=== PATIENT | male | born 1950 ===

== ENCOUNTER 2017-06-02 11:21 | Emergency (ER) | payer MEDICARE, MEDICAID ==
[2017-06-02 11:31] VITALS: BMI 24.1
[2017-06-02] MEDS ORDERED: Metoprolol Succinate 50 mg XL Tab PO STA (12:12)
[2017-06-02] MEDS ORDERED: Sodium Chloride 0.9% 1,000 ML IV SCH (12:15)
--- NOTE | 2017-06-02 12:34 | C.PDOC ---
History Of Present Illness 66 y/o male brought to ED from home by EMS with complaints of worsening pain and weakness to lower extremities for 6 months and dizziness today. Patient states he is unable to walk secondary to pain, and when he walks he feels off balance and is afraid of falling. He uses cane to walk. Patient states he recently saw Dr. Quinteros who said he needed Vitamin D. Patient states he last took HTN medication yesterday, none was taken today. Patient admits to numbness and denies recent injury, nausea, vomiting, chest pain or any other complaints at this time. Time Seen by Provider: 06/02/17 11:50 Chief Complaint (Nursing): Lower Extremity Problem/Injury History Per: Patient History/Exam Limitations: no limitations Onset/Duration Of Symptoms: Days Current Symptoms Are (Timing): Still Present Past Medical History Reviewed: Historical Data, Nursing Documentation, Vital Signs Vital Signs: Last Vital Signs Temp 98.1 F 06/02/17 14:58 Pulse 82 06/02/17 14:58 Resp 18 06/02/17 14:58 BP 156/86 H 06/02/17 14:58 Pulse Ox 99 06/02/17 15:03 - Medical History PMH: Anemia, Anxiety, CAD, COPD, CVA (2008), Emphysema, HTN, Hypercholesterolemia - [facility] Procedures ANGIOPLASTY OF OTHER NON-CORONARY VESSEL(S) (01/03/14) ATHERECTOMY OF OTHER NON-CORONARY VESSEL(S) (01/03/14) CL REDUC DISLOC-SHOULDER (10/26/14) CLOSURE SKIN & SUBCUTANEOUS NEC (05/29/14) ENDOSC POLYPECTOMY OF LG INTEST (06/29/14) ESOPHAGOGASTRODUODENOSCOPY [EGD] W/CLOSED BIOPSY (06/29/14) INSEJ [id number] PERIPHERAL NON-CORONARY VES STENT(S) (01/03/14) INSERTION OF ONE VASCULAR STENT (01/03/14) PACKED CELL TRANSFUSION (06/29/14) PROCEDURE ON SINGLE VESSEL (01/03/14) TETANUS TOXOID ADMINIST (05/29/14) Family History: States: No Known Family Hx - Social History Hx Tobacco Use: Yes Hx Alcohol Use: Yes Hx Substance Use: No - Immunization History Hx Tetanus Toxoid Vaccination: No Hx Influenza Vaccination: Yes Hx Pneumococcal Vaccination: Yes Review Of Systems Constitutional: Negative for: Fever, Chills Eyes: Negative for: Vision Change Cardiovascular: Negative for: Chest Pain Respiratory: Negative for: Shortness of Breath Gastrointestinal: Negative for: Nausea, Vomiting Musculoskeletal: Positive for: Leg Pain Skin: Negative for: Rash Neurological: Positive for: Dizziness Physical Exam - Physical Exam Appears: Non-toxic, No Acute Distress, Unkempt Skin: Warm, Dry, No Rash Head: Atraumatic, Normacephalic, No Tenderness, No Swelling Eye(s): right: Normal Inspection, left: Other (Exotropia) Oral Mucosa: Moist Teeth: Other (Poor dentition) Throat: Normal, No Erythema, No Exudate Neck: Supple Cardiovascular: Rhythm Regular, No Murmur, Other (Tachycardic) Respiratory: Normal Breath Sounds, No Rales, No Rhonchi, No Wheezing Gastrointestinal/Abdominal: Soft, No Tenderness Back: Normal Inspection, No Vertebral Tenderness Extremity: Bilateral: Atraumatic, Hips Non-Tender, No Pedal Edema, Normal Color And Temperature, Normal ROM, Other (strength symmetric in lower extremities and upper) Pulses: Left Dorsalis Pedis: Normal, Right Dorsalis Pedis: Normal Neurological/Psych: Oriented x3, Normal Speech, Normal Cranial Nerves, Normal Motor, Normal Sensation Gait: Unable To Assess ED Course And Treatment - Laboratory Results Result Diagrams: 06/02/17 12:39 06/02/17 12:39 Lab Interpretation: No Acute Changes ECG: Interpreted By Me, Viewed By Ut ECG Rhythm: Sinus Rhythm, R BBB ECG Interpretation: No Acute Changes, No Changes From Prior (01/17/16) Rate From EC (bpm) O2 Sat by Pulse Oximetry: 99 (RA) Pulse Ox Interpretation: Normal - Other Rad CXR X-Ray: Viewed By Me, Read By Radiologist Interpretation: PROCEDURE: CHEST RADIOGRAPH, 1 VIEW. HISTORY: SOB. COMPARISON: 01/16/2016. FINDINGS: LUNGS: Clear. PLEURA: No pneumothorax or pleural fluid seen. CARDIOVASCULAR: No radiographic findings to suggest acute or significant cardiovascular disease. OSSEOUS STRUCTURES: No significant abnormalities. VISUALIZED UPPER ABDOMEN: Normal. OTHER FINDINGS: None. IMPRESSION: No active disease. No acute/significant interval changes. - CT Scan/US Head w/o contrast Other Rad Studies (CT/US): Read By Radiologist, Radiology Report Reviewed CT/US Interpretation: PROCEDURE: CT HEAD WITHOUT CONTRAST. HISTORY: dizziness. COMPARISON: 01/16/2016. TECHNIQUE: Axial computed tomography images were obtained through the head/brain without intravenous contrast. Radiation dose: Total exam DLP = 833.75 mGy-cm. This CT exam was performed using one or more of the following dose reduction techniques: Automated exposure control, adjustment of the mA and/or kV according to patient size, and/ or use of iterative reconstruction technique. FINDINGS: HEMORRHAGE: No intracranial hemorrhage. BRAIN: No mass effect or edema. Mild diffuse age- appropriate cerebral atrophy. Moderate to severe patchy and confluent periventricular and deep white matter lucency consistent with microvascular ischemic change. No evidence of acute infarct. VENTRICLES: Unremarkable. No hydrocephalus. CALVARIUM: Unremarkable. PARANASAL SINUSES: Unremarkable as visualized. No significant inflammatory changes. MASTOID AIR CELLS: Unremarkable as visualized. No inflammatory changes. OTHER FINDINGS: None. IMPRESSION: No intracranial mass, hemorrhage or evidence of acute infarct. Moderate to severe chronic white matter ischemic change. Medical Decision Making Medical Decision Making: Impression: Dizziness, HTN, Gait problems Plan: ECG, Head CT, Blood work, UA ordered. Metropolol administered Progress: All diagnostics reviewed with no acute changes from prior visits. No ICH or evidence of acute infarct on CT Patient reevaluated, BP has improved after meds. Patient asking for food and was given sandwich to eat. He reports feeling better, but does not feel comfortable leaving ED. I explained to patient there is no medical indication for admission at this time. Patient asking for walker. Call Physical Therapist to evaluate patient and instruct patient on use of walker. Patient able to ambulate better and feels safe and better leaving. He is stable for discharge. Disposition Counseled Patient/Family Regarding: Diagnosis, Need For Followup - Disposition Referrals: [facility] [Outside] [facility] [Outside] Disposition: HOME/ ROUTINE Disposition Time: 15:02 Condition: STABLE Additional Instructions: Vaya a christy mdico o la clnica en 2-5 antonio sin falta, para mas evaluacin. [place] [facility] chhaya indicado. Volver a la nithya de emergencia en cualquier momento si los sntomas persisten o empeoran. 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 - Scribe Statement The provider has reviewed the documentation as recorded by the Saniaibfelisa Pinto All medical record entries made by the Nolan were at my direction and personally dictated by me. I have reviewed the chart and agree that the record accurately reflects my personal performance of the history, physical exam, medical decision making, and the department course for this patient. I have also personally directed, reviewed, and agree with the discharge instructions and disposition.
[2017-06-02 12:46] LABS: BASO # 0.1 K/uL (0.0-0.2); EOS # 0.1 K/uL (0.0-0.7); EOS % 0.8 % (0.0-4.0); HEMOGLOBIN 16.3 g/dL (12.0-18.0); LYMPH % 13.9 % (20.0-40.0); MEAN CELL VOLUME 94.8 fL (80.0-94.0); MEAN CORPUSCULAR HEMOGLOBIN 32.6 pg (27.0-31.0); MEAN CORPUSCULAR HGB CONC 34.4 g/dL (33.0-37.0); MEAN PLATELET VOLUME 7.6 fL (7.2-11.7); MONO % 14.2 % (0.0-10.0); NEUT % 70.1 % (50.0-75.0); RBC 4.99 Mil/uL (4.40-5.90); RED CELL DISTRIBUTION WIDTH 15.4 % (11.5-14.5); WHITE BLOOD COUNT 7.1 K/uL (4.8-10.8)
[2017-06-02 12:57] LABS: ALB/GLOB RATIO 1.3 (1.0-2.1); ALBUMIN 4.4 g/dL (3.5-5.0); ALT/SGPT 23 U/L (21-72); AST/SGOT 24 U/L (17-59); BLOOD UREA NITROGEN 12 mg/dL (9-20); CALCIUM 9.4 mg/dl (8.6-10.4); GFR AFRICAN-AMERICAN > 60; GFR NON-AFRICAN AMERICAN > 60
--- NOTE | 2017-06-02 13:02 | CT ---
PROCEDURE: CT HEAD WITHOUT CONTRAST. HISTORY: dizziness COMPARISON: 01/16/2016 TECHNIQUE: Axial computed tomography images were obtained through the head/brain without intravenous contrast. Radiation dose: Total exam DLP = 833.75 mGy-cm. This CT exam was performed using one or more of the following dose reduction techniques: Automated exposure control, adjustment of the mA and/or kV according to patient size, and/or use of iterative reconstruction technique. FINDINGS: HEMORRHAGE: No intracranial hemorrhage. BRAIN: No mass effect or edema. Mild diffuse age-appropriate cerebral atrophy. Moderate to severe patchy and confluent periventricular and deep white matter lucency consistent with microvascular ischemic change. No evidence of acute infarct. VENTRICLES: Unremarkable. No hydrocephalus. CALVARIUM: Unremarkable. PARANASAL SINUSES: Unremarkable as visualized. No significant inflammatory changes. MASTOID AIR CELLS: Unremarkable as visualized. No inflammatory changes. OTHER FINDINGS: None. IMPRESSION: No intracranial mass, hemorrhage or evidence of acute infarct. Moderate to severe chronic white matter ischemic change.
[2017-06-02 13:03] LABS: INR 0.9; PROTHROMBIN TIME 10.3 SECONDS (9.7-12.2)
[2017-06-02 13:05] LABS: URINE BILIRUBIN NEGATIVE (NEGATIVE); URINE BLOOD NEGATIVE (NEGATIVE); URINE CLARITY Clear (Clear); URINE COLOR Yellow (YELLOW); URINE GLUCOSE (UA) NORMAL (Normal); URINE LEUKOCYTE ESTERASE NEG Leu/uL (Negative); URINE NITRATE NEGATIVE (NEGATIVE); URINE PROTEIN NEGATIVE (NEGATIVE)
[2017-06-02 13:06] LABS: B-TYPE NATRIURETIC PEPTIDE 118 pg/mL (0-900); CK-MB 1.55 ng/mL (0.0-3.38)
[2017-06-02] MEDS ORDERED: Sodium Chloride 0.9% 1,000 ML ONE (13:06)
--- NOTE | 2017-06-02 13:39 | RAD ---
PROCEDURE: CHEST RADIOGRAPH, 1 VIEW HISTORY: SOB COMPARISON: 01/16/2016 FINDINGS: LUNGS: Clear. PLEURA: No pneumothorax or pleural fluid seen. CARDIOVASCULAR: No radiographic findings to suggest acute or significant cardiovascular disease. OSSEOUS STRUCTURES: No significant abnormalities. VISUALIZED UPPER ABDOMEN: Normal. OTHER FINDINGS: None. IMPRESSION: No active disease. No acute/significant interval changes.
[2017-06-02 14:59] VITALS: BP 156/86; PULSE 82; RESP 18; TEMP 98.1
[2017-06-02 15:04] VITALS: O2SAT 99
== END 2017-06-02 16:15 | disposition home or self-care (01) ==
LOC: C.ER 11:21
DX: R42 Dizziness and giddiness (principal); E78.00 Pure hypercholesterolemia, unspecified; I10 Essential (primary) hypertension; I25.10 Atherosclerotic heart disease of native coronary artery without angina pectoris; J44.9 Chronic obstructive pulmonary disease, unspecified; Z86.73 Personal history of transient ischemic attack (TIA), and cerebral infarction without residual deficits; Z87.891 Personal history of nicotine dependence
CPT/HCPCS: 70450; 71045; 80053; 81001; 82550; 82553; 83880; 85025; 85610; 85730; 96360; 96361; 97116; 97161; 99284; G0480; G8978; G8979; G8980; J7040

== ENCOUNTER 2018-02-18 13:17 | Inpatient (IN) | payer MEDICARE, MEDICAID ==
[2018-02-18 13:17] VITALS: BMI 24.1
[2018-02-18 13:54] LABS: BASO # 0.1 K/uL (0.0-0.2); BASO % 1.1 % (0.0-2.0); EOS # 0.1 K/uL (0.0-0.7); EOS % 0.9 % (0.0-4.0); HEMOGLOBIN 15.7 g/dL (12.0-18.0); LYMPH # 0.8 K/uL (1.0-4.3); LYMPH % 8.4 % (20.0-40.0); MEAN CELL VOLUME 94.7 fL (80.0-94.0); MEAN CORPUSCULAR HEMOGLOBIN 32.3 pg (27.0-31.0); MEAN CORPUSCULAR HGB CONC 34.1 g/dL (33.0-37.0); MEAN PLATELET VOLUME 8.6 fL (7.2-11.7); MONO # 0.8 K/uL (0.0-0.8); MONO % 8.7 % (0.0-10.0); NEUT # 7.6 K/uL (1.8-7.0); NEUT % 80.9 % (50.0-75.0); PLATELET COUNT 302 K/uL (130-400); RBC 4.85 Mil/uL (4.40-5.90); RED CELL DISTRIBUTION WIDTH 13.8 % (11.5-14.5); WHITE BLOOD COUNT 9.4 K/uL (4.8-10.8)
[2018-02-18 14:07] LABS: ALB/GLOB RATIO 1.6 (1.0-2.1); ALBUMIN 4.2 g/dL (3.5-5.0); ALT/SGPT 23 U/L (21-72); AST/SGOT 21 U/L (17-59); BLOOD UREA NITROGEN 7 mg/dL (9-20); CALCIUM 9.3 mg/dl (8.6-10.4); GFR NON-AFRICAN AMERICAN 55
[2018-02-18 14:19] LABS: B-TYPE NATRIURETIC PEPTIDE 740 pg/mL (0-900)
[2018-02-18 14:35] LABS: BANDS 3 % (0-2); LYMPHOCYTE 7 % (20-40); MONOCYTE 8 % (0-10); NEUTROPHIL 82 % (50-75); PLATELET ESTIMATE NORMAL (NORMAL); TOTAL CELLS COUNTED 100
--- NOTE | 2018-02-18 14:36 | CT ---
Date of service: 02/18/2018 PROCEDURE: CT HEAD WITHOUT CONTRAST. HISTORY: weakness COMPARISON: Noncontrast head CT performed 06/02/17 TECHNIQUE: Axial computed tomography images were obtained through the head/brain without intravenous contrast. Radiation dose: Total exam DLP = 1037.14 mGy-cm. This CT exam was performed using one or more of the following dose reduction techniques: Automated exposure control, adjustment of the mA and/or kV according to patient size, and/or use of iterative reconstruction technique. FINDINGS: HEMORRHAGE: No intracranial hemorrhage. BRAIN: Diffuse atrophy with prominence of the ventricles and sulci noted. No mass effect or edema. Dense intracranial atherosclerosis. Moderate to severe scattered periventricular and subcortical white matter hypodensities, which are nonspecific, but often seen with chronic microvascular ischemic disease. VENTRICLES: No hydrocephalus. CALVARIUM: Unremarkable. PARANASAL SINUSES: Unremarkable as visualized. No significant inflammatory changes. MASTOID AIR CELLS: Unremarkable as visualized. No inflammatory changes. OTHER FINDINGS: None. IMPRESSION: Moderate to severe nonspecific white matter changes. Please note that MRI with diffusion imaging is more sensitive in the detection of acute ischemic event.
--- NOTE | 2018-02-18 14:43 | RAD ---
HISTORY: SOB COMPARISON: Chest x-ray performed 06/02/17 TECHNIQUE: Chest, one view. FINDINGS: LUNGS: Mild bibasilar atelectasis. Please note that chest x-ray has limited sensitivity for the detection of pulmonary masses. PLEURA: No significant pleural effusion identified. No definite pneumothorax . CARDIOVASCULAR: Heart size appears top normal. Atherosclerotic calcification present. OSSEOUS STRUCTURES: Degenerative changes. VISUALIZED UPPER ABDOMEN: Unremarkable. OTHER FINDINGS: None. IMPRESSION: Mild bibasilar atelectasis.
[2018-02-18 15:23] LABS: URINE BILIRUBIN NEGATIVE (NEGATIVE); URINE BLOOD 1+ (NEGATIVE); URINE CLARITY Clear (Clear); URINE COLOR Yellow (YELLOW); URINE GLUCOSE (UA) NORMAL (Normal); URINE LEUKOCYTE ESTERASE NEG Leu/uL (Negative); URINE PROTEIN NEGATIVE (NEGATIVE); URINE UROBILINOGEN NORMAL mg/dL (0.2-1.0)
[2018-02-18 15:46] LABS: BARBITURATES, UR NEGATIVE (NEGATIVE); BENZODIAZEPINES, UR NEGATIVE (NEGATIVE); OPIATES, UR NEGATIVE (NEGATIVE); PHENCYCLIDINE, UR NEGATIVE (NEGATIVE)
--- NOTE | 2018-02-18 15:58 | C.PDOC ---
History Of Present Illness 67 y/o male brought to ER by EMS for evaluation of weakness. As per EMS, patient was found to be weak by bystanders as he was unable to cross the street. Patient is complaining of generalized weakness and dizziness. Patient reports that he is being treated by for Vitamin B12 deficiency. Denies having CP, SOB, fever, chills, nausea, and vomiting. Time Seen by Provider: 02/18/18 13:29 Chief Complaint (Nursing): Weakness/Neurological Deficit History Per: Patient, EMS History/Exam Limitations: no limitations Onset/Duration Of Symptoms: Hrs Current Symptoms Are (Timing): Still Present Severity: Moderate Past Medical History Reviewed: Historical Data, Nursing Documentation, Vital Signs Vital Signs: Last Vital Signs Temp 98.5 F 02/18/18 13:29 Pulse 99 H 02/18/18 13:29 Resp 20 02/18/18 13:29 BP 129/85 02/18/18 13:29 Pulse Ox 95 02/18/18 13:29 - Medical History PMH: Anemia, Anxiety, CAD, COPD, CVA (2008), Emphysema, HTN, Hypercholesterolemia Denies: Chronic Kidney Disease Other Surgeries: Hx of surgeries - [facility] Procedures ANGIOPLASTY OF OTHER NON-CORONARY VESSEL(S) (01/03/14) ATHERECTOMY OF OTHER NON-CORONARY VESSEL(S) (01/03/14) CL REDUC DISLOC-SHOULDER (10/26/14) CLOSURE SKIN & SUBCUTANEOUS NEC (05/29/14) ENDOSC POLYPECTOMY OF LG INTEST (06/29/14) ESOPHAGOGASTRODUODENOSCOPY [EGD] W/CLOSED BIOPSY (06/29/14) INSEJ [id number] PERIPHERAL NON-CORONARY VES STENT(S) (01/03/14) INSERTION OF ONE VASCULAR STENT (01/03/14) PACKED CELL TRANSFUSION (06/29/14) PROCEDURE ON SINGLE VESSEL (01/03/14) TETANUS TOXOID ADMINIST (05/29/14) Family History: States: No Known Family Hx - Social History Hx Tobacco Use: Yes Hx Alcohol Use: Yes Hx Substance Use: No - Immunization History Hx Tetanus Toxoid Vaccination: No Hx Influenza Vaccination: Yes Hx Pneumococcal Vaccination: Yes Review Of Systems Except As Marked, All Systems Reviewed And Found Negative. Constitutional: Positive for: Weakness. Negative for: Fever, Chills Cardiovascular: Negative for: Chest Pain Respiratory: Negative for: Shortness of Breath Gastrointestinal: Negative for: Nausea, Vomiting Physical Exam - Physical Exam Appears: Non-toxic, No Acute Distress Skin: Normal Color, Warm, Dry Head: Atraumatic, Normacephalic Eye(s): bilateral: Normal Inspection Nose: Normal Oral Mucosa: Moist Neck: Supple Chest: Symmetrical Cardiovascular: Rhythm Regular Respiratory: Normal Breath Sounds, No Rales, No Rhonchi, No Wheezing Gastrointestinal/Abdominal: Normal Exam, Soft, No Tenderness, No Guarding, No Rebound Neurological/Psych: Oriented x3, Normal Speech, Normal Motor, Normal Sensation Gait: Steady ED Course And Treatment - Laboratory Results Result Diagrams: 02/18/18 13:49 02/18/18 13:49 ECG: Interpreted By Me, Viewed By Me ECG Rhythm: Sinus Rhythm Interpretation Of ECG: NSR with normal intervals, normal axises, and non- specific T wave changes Rate From EC O2 Sat by Pulse Oximetry: 95 (RA) Pulse Ox Interpretation: Normal - Other Rad CXR X-Ray: Viewed By Me, Read By Radiologist Interpretation: HISTORY: SOB. COMPARISON: Chest x-ray performed 06/02/17. TECHNIQUE: Chest, one view. FINDINGS: LUNGS: Mild bibasilar atelectasis. Please note that chest x-ray has limited sensitivity for the detection of pulmonary masses. PLEURA: No significant pleural effusion identified. No definite pneumothorax . CARDIOVASCULAR: Heart size appears top normal. Atherosclerotic calcification present. OSSEOUS STRUCTURES: Degenerative changes. VISUALIZED UPPER ABDOMEN: Unremarkable. OTHER FINDINGS: None. IMPRESSION: Mild bibasilar atelectasis. - CT Scan/US CT-Head Other Rad Studies (CT/US): Read By Radiologist, Radiology Report Reviewed CT/US Interpretation: Date of service: 02/18/2018. PROCEDURE: CT HEAD WITHOUT CONTRAST. HISTORY: weakness. COMPARISON: Noncontrast head CT performed 06/02/17. TECHNIQUE: Axial computed tomography images were obtained through the head/brain without intravenous contrast. Radiation dose: Total exam DLP = 1037.14 mGy-cm. This CT exam was performed using one or more of the following dose reduction techniques: Automated exposure control, adjustment of the mA and/or kV according to patient size, and/or use of iterative reconstruction technique. FINDINGS: HEMORRHAGE: No intracranial hemorrhage. BRAIN: Diffuse atrophy with prominence of the ventricles and sulci noted. No mass effect or edema. Dense intracranial atherosclerosis. Moderate to severe scattered periventricular and subcortical white matter hypodensities, which are nonspecific, but often seen with chronic microvascular ischemic disease. VENTRICLES: No hydrocephalus. CALVARIUM: Unremarkable. PARANASAL SINUSES: Unremarkable as visualized. No significant inflammatory changes. MASTOID AIR CELLS: Unremarkable as visualized. No inflammatory changes. OTHER FINDINGS: None. IMPRESSION: Moderate to severe nonspecific white matter changes. Please note that MRI with diffusion imaging is more sensitive in the detection of acute ischemic event. Medical Decision Making Medical Decision Making: Assessment: Dizziness Plan: --Labs --ECG --UA --CXR --CT-Head Updates: Case discussed with Dr.N Corral, hospitalist. Patient will be admitted to Med Surg under the service of Dr.N Corral for weakness. Disposition Discussed With Dr.: Eris Corral Doctor Will See Patient In The: Hospital Counseled Patient/Family Regarding: Studies Performed, Diagnosis - Disposition Disposition: HOSPITALIZED Disposition Time: 16:30 Condition: FAIR - Clinical Impression Clinical Impression: Muscle weakness, Weakness - Scribe Statement The provider has reviewed the documentation as recorded by the Scribe Alverto Rodriguez Provider Attestation: All medical record entries made by the Scribe were at my direction and personally dictated by me. I have reviewed the chart and agree that the record accurately reflects my personal performance of the history, physical exam, medical decision making, and the department course for this patient. I have also personally directed, reviewed, and agree with the discharge instructions and disposition.
--- NOTE | 2018-02-18 16:48 | CP.PCM.HP ---
History of Present Illness - History of Present Illness History of Present Illness: PGY-1 Medicine H&P for Dr. Gilmore Patient s a 67 year old male with PMHx of HTN, anemia, emphysema, CAD, PVD, and CVA (2008) presenting with dizziness and generalized weakness. He was brought in by ambulance due to feeling dizzy and weak while crossing the street today. He states that he was unable to make it to the other side of the street and that is when someone called an ambulance. He describes the dizziness as if his head is spinning. He denies any visual or hearing loss. He also complains of feeling unsteady and weak when he walks and uses a cane to walk. He states that he has had this problem for a long time and saw a neurologist who said that he is deficient in vitamin B12. Patient denies taking Vitamin B12 supplements. Moreover, he reports to residual left eye visual abnormalities due to prior stroke in 2008. Patient denies fevers, chills, nausea, vomiting, tinnitus, difficulties in swallowing or speaking, headaches, chest pain, SOB, palpitations, abdominal pain, leg swelling, and paresthesias. PMHx: HTN, anemia (history of blood transfusions), emphysema, CAD, PVD, CVA (2008) PSHx: femoral artery stent (2013) Family Hx: father- of [place] at age 58, mother- , unknown cause, brother- alive and healthy. Social Hx: smokes half PPD x 50 years. ETOH use 2-3 beers/week (pt has had [facility] ER visits for ETOH intoxication). Denies illicit drug use. Lives with 2 friends. Medications: Cozaar 50mg daily, Metoprolol 100mg daily, Aspirin 81mg daily. PMD: Dr. Sesar Floyd Present on Admission - Present on Admission Any Indicators Present on Admission: No History of DVT/PE: No History of Uncontrolled Diabetes: No Urinary Catheter: No Decubitus Ulcer Present: No Review of Systems - Constitutional Constitutional: Fatigue. absent: Fever, Headache - EENT Eyes: absent: Blurred Vision, Change in Vision, Loss of Vision Ears: Dizziness. absent: Decreased Hearing, Ear Discharge, Ear Pain, Tinnitus Nose/Mouth/Throat: absent: Nasal Congestion, Nasal Discharge - Cardiovascular Cardiovascular: absent: Chest Pain, Diaphoresis, Palpitations - Respiratory Respiratory: absent: Cough, Dyspnea, Hemoptysis, Wheezing - Gastrointestinal Gastrointestinal: absent: Abdominal Pain, Change in Bowel Habits, Diarrhea, Nausea, Vomiting - Genitourinary Genitourinary: absent: Hematuria, Urinary Incontinence - Musculoskeletal Musculoskeletal: absent: Arthralgias, Numbness - Neurological Neurological: Abnormal Gait, Dizziness, Vertigo, Weakness. 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) - RENAL Hx Chronic Kidney Disease: No - ENDOCRINE/METABOLIC Hx Endocrine Disorders: No - HEMATOLOGICAL/ONCOLOGICAL Hx Anemia: Yes - INTEGUMENTARY Hx Dermatological Problems: No - MUSCULOSKELETAL/RHEUMATOLOGICAL Hx Musculoskeletal Disorders: Yes Hx Falls: Yes - GASTROINTESTINAL Hx Gastrointestinal Disorders: No - GENITOURINARY/GYNECOLOGICAL Hx Genitourinary Disorders: Yes Hx Prostate Problems: Yes - PSYCHIATRIC Hx Anxiety: Yes Hx Substance Use: No - SURGICAL HISTORY Hx Surgeries: Yes (femoral artery stent) - ANESTHESIA Hx Anesthesia: Yes Hx Anesthesia Reactions: No Hx Malignant Hyperthermia: No Meds Allergies/Adverse Reactions: Allergies Allergy/AdvReac Type Severity Reaction Status Date / Time No Known Allergies Allergy Verified 02/18/18 13:35 Physical Exam - Constitutional Appears: Well, Non-toxic, No Acute Distress - Head Exam Head Exam: ATRAUMATIC, NORMOCEPHALIC - Eye Exam Eye Exam: EOMI, Normal appearance, PERRL. absent: Conjunctival injection, Nystagmus Pupil Exam: NORMAL ACCOMODATION, PERRL - ENT Exam ENT Exam: Mucous Membranes Moist - Respiratory Exam Respiratory Exam: Clear to Auscultation Bilateral. absent: Accessory Muscle Use, Rales, Rhonchi, Wheezes - Cardiovascular Exam Cardiovascular Exam: REGULAR RHYTHM, +S1, +S2. absent: Gallop, Rubs, Systolic Murmur - GI/Abdominal Exam GI & Abdominal Exam: Soft. absent: Distended, Firm, Tenderness - Extremities Exam Extremities exam: Positive for: normal inspection, pedal pulses present. Negative for: pedal edema, tenderness - Neurological Exam Neurological exam: Alert, CN II-XII Intact, Oriented x3 - Psychiatric Exam Psychiatric exam: Normal Affect, Normal Mood - Skin Skin Exam: Dry, Intact, Normal Color, Warm Results - Vital Signs Recent Vital Signs: Last Vital Signs Temp 98.5 F 02/18/18 13:29 Pulse 99 H 02/18/18 13:29 Resp 20 02/18/18 13:29 BP 129/85 02/18/18 13:29 Pulse Ox 95 02/18/18 16:31 - Labs Result Diagrams: 02/18/18 13:49 02/18/18 13:49 Labs: Laboratory Results - last 24 hr 02/18/18 02/18/18 02/18/18 13:46 13:49 13:49 WBC 9.4 RBC 4.85 Hgb 15.7 Hct 45.9 MCV 94.7 H MCH 32.3 H MCHC 34.1 RDW 13.8 Plt Count 302 MPV 8.6 Neut % (Auto) 80.9 H Lymph % (Auto) 8.4 L [place] % (Auto) 8.7 Eos % (Auto) 0.9 Baso % (Auto) 1.1 Neut # (Auto) 7.6 H Lymph # (Auto) 0.8 L [place] # (Auto) 0.8 Eos # (Auto) 0.1 Baso # (Auto) 0.1 Neutrophils % (Manual) 82 H Band Neutrophils % 3 H Lymphocytes % (Manual) 7 L Monocytes % (Manual) 8 Platelet Estimate Normal RBC Morphology Normal Sodium 136 Potassium 3.4 L Chloride 104 Carbon Dioxide 19 L Anion Gap 16 BUN 7 L Creatinine 1.3 Est GFR ( Amer) > 60 Est GFR (Non-Af Amer) 55 POC Glucose (mg/dL) 112 H Random Glucose 116 H Calcium 9.3 Magnesium 1.6 Total Bilirubin 0.5 AST 21 ALT 23 Alkaline Phosphatase 76 Ammonia Troponin I < 0.0120 NT-Pro-B Natriuret Pep 740 Total Protein 6.7 Albumin 4.2 Globulin 2.6 Albumin/Globulin Ratio 1.6 TSH 3rd Generation 3.13 Urine Color Urine Clarity Urine pH Ur Specific [place] Urine Protein Urine Glucose (UA) Urine Ketones Urine Blood Urine Nitrate Urine Bilirubin Urine Urobilinogen Ur Leukocyte Esterase Urine WBC (Auto) Urine RBC (Auto) Hyaline Casts Urine Opiates Screen Urine Methadone Screen Ur Barbiturates Screen Ur Phencyclidine Scrn Ur Amphetamines Screen U Benzodiazepines Scrn U Oth Cocaine Metabols U Cannabinoids Screen Alcohol, Quantitative < 10 02/18/18 02/18/18 02/18/18 13:49 15:10 15:10 WBC RBC Hgb Hct MCV MCH MCHC RDW Plt Count MPV Neut % (Auto) Lymph % (Auto) [place] % (Auto) Eos % (Auto) Baso % (Auto) Neut # (Auto) Lymph # (Auto) [place] # (Auto) Eos # (Auto) Baso # (Auto) Neutrophils % (Manual) Band Neutrophils % Lymphocytes % (Manual) Monocytes % (Manual) Platelet Estimate RBC Morphology Sodium Potassium Chloride Carbon Dioxide Anion Gap BUN Creatinine Est GFR ( Amer) Est GFR (Non-Af Amer) POC Glucose (mg/dL) Random Glucose Calcium Magnesium Total Bilirubin AST ALT Alkaline Phosphatase Ammonia < 9 L Troponin I NT-Pro-B Natriuret Pep Total Protein Albumin Globulin Albumin/Globulin Ratio TSH 3rd Generation Urine Color Yellow Urine Clarity Clear Urine pH 7.0 Ur Specific [place] 1.006 Urine Protein Negative Urine Glucose (UA) Normal Urine Ketones Negative Urine Blood 1+ H Urine Nitrate Negative Urine Bilirubin Negative Urine Urobilinogen Normal Ur Leukocyte Esterase Neg Urine WBC (Auto) 1 Urine RBC (Auto) 9 H Hyaline Casts 3-5 H Urine Opiates Screen Negative Urine Methadone Screen Negative Ur Barbiturates Screen Negative Ur Phencyclidine Scrn Negative Ur Amphetamines Screen Negative U Benzodiazepines Scrn Negative U Oth Cocaine Metabols Negative U Cannabinoids Screen Negative Alcohol, Quantitative Assessment & Plan - Assessment and Plan (Free Text) Assessment: Patient s a 67 year old male with PMHx of HTN, anemia, emphysema, CAD, PVD, and CVA (2008) presenting with dizziness and generalized weakness. Plan: Dizziness: - Likely 2/2 BPV vs Meniere's disease - Meclizine 25mg PO BID - Brain MRI without contrast: f/u - PT/OT - Orthostatic BP: f/u - Head CT (02/18): No intracrnial hemorrhage. Moderate to severe non-specific white matter changes - CXR (03/20): Mild bibasilar atelactasis Hx of Alcohol abuse: - Upon chart review, patient has multiple visits in the past for alcohol intoxication - Folate 1mg PO QD - Vitamin B12 1000 mcg PO QD - Thiamine 50mg PO QD - Serum alcohol level: < 10 - UDS: negative Hypertension: - Losartan 50mg PO QD - Metoprolol 25mg PO BID - Continue to monitor BP Hx of CAD: - ASA 81mg PO QD - Metoprolol 25mg PO BID Prophylaxis/diet: - SCD's - Heart healthy and low sodium diet Case discussed with Dr. Deirdre Gibson, PGY-1
[2018-02-18 22:49] VITALS: RESP 20
[2018-02-19 07:54] LABS: BASO # 0.1 K/uL (0.0-0.2); BASO % 1.2 % (0.0-2.0); EOS # 0.2 K/uL (0.0-0.7); EOS % 3.2 % (0.0-4.0); HEMOGLOBIN 14.9 g/dL (12.0-18.0); LYMPH # 1.1 K/uL (1.0-4.3); LYMPH % 19.3 % (20.0-40.0); MEAN CORPUSCULAR HEMOGLOBIN 32.2 pg (27.0-31.0); MEAN CORPUSCULAR HGB CONC 33.9 g/dL (33.0-37.0); MEAN PLATELET VOLUME 8.7 fL (7.2-11.7); MONO # 0.8 K/uL (0.0-0.8); MONO % 14.5 % (0.0-10.0); NEUT # 3.4 K/uL (1.8-7.0); NEUT % 61.8 % (50.0-75.0); RBC 4.63 Mil/uL (4.40-5.90); RED CELL DISTRIBUTION WIDTH 13.6 % (11.5-14.5); WHITE BLOOD COUNT 5.5 K/uL (4.8-10.8)
[2018-02-19 08:13] LABS: ALB/GLOB RATIO 1.4 (1.0-2.1); ALBUMIN 3.5 g/dL (3.5-5.0); ALT/SGPT 22 U/L (21-72); AST/SGOT 29 U/L (17-59); BLOOD UREA NITROGEN 10 mg/dL (9-20); CALCIUM 8.9 mg/dl (8.6-10.4); GFR NON-AFRICAN AMERICAN > 60
[2018-02-19] MEDS: Enoxaparin 40 mg Syringe SC SCH (10:50)
--- NOTE | 2018-02-19 11:12 | MRI ---
Date of service: 02/19/2018 PROCEDURE: MRI BRAIN WITHOUT CONTRAST HISTORY: Dizziness and ataxia COMPARISON: Noncontrast head CT 02/18/2018. TECHNIQUE: Multiplanar, multisequence MR images of the brain were obtained without intravenous contrast enhancement. FINDINGS: HEMORRHAGE: None DWI: No evidence of an acute or early subacute infarction. BRAIN PARENCHYMA: Good corticomedullary differentiation is seen. Moderate proportional, diffuse expansion of the ventriculosulcal and cisternal spaces is appreciated with extensive white matter lucency compatible with diffuse cerebral atrophy and chronic microangiopathy. Pattern somewhat advanced for the patient's stated age of 67 years. No suspicious extra-axial fluid collection is identified and the midline brain anatomy appears grossly nonfocal as imaged. There is no mass effect throughout. VENTRICLES: Unremarkable. No hydrocephalus. CRANIUM: Unremarkable. ORBITS: Grossly unremarkable. PARANASAL SINUSES/MASTOIDS: Clear VASCULAR SYSTEM: Skull base flow voids intact. OTHER FINDINGS: None. IMPRESSION: Relatively advanced chronic microangiopathy and age-appropriate diffuse cerebral atrophy identified throughout the brain. No acute separate brain infarction mass effect or intracranial hemorrhage grossly appreciable.
[2018-02-19] MEDS ORDERED: Pneumococcal 23-Valent Vaccine IM ONE (14:02)
--- NOTE | 2018-02-19 15:16 | CP.PCM.PN ---
Subjective - Date & Time of Evaluation Date of Evaluation: 02/19/18 Time of Evaluation: 10:30 - Subjective Subjective: Seen and examined this afternoon,[atient was sitting and eating lunch. Spoke to him with the help of Divehi speaking RN. Patient is complaining of dizziness for years and followed by neurologist. patient states that he was give Vitamin b12. Patient feels unsteady. complaining of right shoulder pain for 3 weeks and he denies fall or trauma to his shoulder. Objective - Vital Signs/Intake and Output Vital Signs (last 24 hours): Temp Pulse Resp BP Pulse Ox 97.9 F 73 20 144/85 95 02/19/18 07:52 02/19/18 07:52 02/19/18 07:52 02/19/18 10:03 02/19/18 07:52 - Medications Medications: Current Medications Acetaminophen (Tylenol 325mg Tab) 650 mg PO Q6 PRN PRN Reason: Pain, Mild (1-3) Last Admin: 02/19/18 08:51 Dose: 650 mg Aspirin (Aspirin Chewable) 81 mg PO DAILY [facility] Last Admin: 02/19/18 10:02 Dose: 81 mg Cyanocobalamin (Vitamin B12 1000 Mcg Tab) 1,000 mcg PO DAILY [facility] Last Admin: 02/19/18 10:03 Dose: 1,000 mcg Enoxaparin Sodium (Lovenox) 40 mg SC DAILY [facility] Last Admin: 02/19/18 10:50 Dose: 40 mg Folic Acid (Folic Acid) 1 mg PO DAILY [facility] Last Admin: 02/19/18 10:03 Dose: 1 mg Influenza Virus Vaccine (Fluzone Quad [id number]) 60 mcg IM .ONCE ONE Stop: 02/21/18 10:01 Losartan Potassium (Cozaar) 50 mg PO DAILY [facility] Last Admin: 02/19/18 10:02 Dose: 50 mg Meclizine HCl (Antivert) 25 mg PO TID PRN PRN Reason: Dizziness Metoprolol Tartrate (Lopressor) 25 mg PO BID [facility] Last Admin: 02/19/18 10:03 Dose: 25 mg Thiamine HCl (Vitamin B1 Tab) 50 mg PO DAILY [facility] Last Admin: 02/19/18 10:03 Dose: 50 mg - Labs Labs: 02/19/18 07:00 02/19/18 07:00 - Constitutional Appears: No Acute Distress - Eye Exam Eye Exam: Normal appearance - ENT Exam ENT Exam: Mucous Membranes Moist - Neck Exam Neck Exam: Full ROM - Respiratory Exam Respiratory Exam: Clear to Ausculation Bilateral, NORMAL BREATHING PATTERN - Cardiovascular Exam Cardiovascular Exam: REGULAR RHYTHM - GI/Abdominal Exam GI & Abdominal Exam: Soft, Normal Bowel Sounds - Rectal Exam Rectal Exam: NORMAL INSPECTION - Extremities Exam Extremities Exam: absent: Full ROM - Back Exam Back Exam: NORMAL INSPECTION - Neurological Exam Neurological Exam: Awake, Oriented x3 - Psychiatric Exam Psychiatric exam: Normal Mood Assessment and Plan - Assessment and Plan (Free Text) Assessment: This is a 67 year old male with PMHx of HTN, anemia, emphysema, CAD, PVD, and CVA (2008) presenting with dizziness and generalized weakness. He was brought in by ambulance due to feeling dizzy and weak while crossing the street today. He states that he was unable to make it to the other side of the street and that is when someone called an ambulance. He describes the dizziness as if his head is spinning. He denies any visual or hearing loss. He also complains of feeling unsteady and weak when he walks and uses a cane to walk. He states that he has had this problem for a long time and saw a neurologist who said that he is deficient in vitamin B12. Plan: 1.Unsteady gait Patient has dizziness for years and followed by neurologist-recommending out pt follow up MRI brain without stroke/no mass seen by PT, recommending rehab.we will follow with SW in the morning patient is complaining fo dizziness d/w RN pt is unsteady 2..Dizziness no orthostatic hypotension Meclizine 25mg PO BID Brain MRI -no acute pathology PT/OT recommend rehab/unsteady Head CT (02/18): No intracrnial hemorrhage. Moderate to severe non-specific white matter changes CXR (03/20): Mild bibasilar atelactasis 3. Hx of Alcohol abuse: Upon chart review, patient has multiple visits in the past for alcohol intoxication Folate 1mg PO QD Vitamin B12 1000 mcg PO QD Thiamine 50mg PO QD Serum alcohol level: < 10 UDS: negative 4.Right shoulder pain shoulder x ray 4.Hypertension: Losartan 50mg PO QD Metoprolol 25mg PO BID Continue to monitor BP 5.Hx of CAD: - ASA 81mg PO QD - Metoprolol 25mg PO BID
[2018-02-20 08:04] LABS: BASO # 0.1 K/uL (0.0-0.2); BASO % 1.3 % (0.0-2.0); EOS # 0.3 K/uL (0.0-0.7); EOS % 3.5 % (0.0-4.0); LYMPH # 1.8 K/uL (1.0-4.3); LYMPH % 23.9 % (20.0-40.0); MEAN CELL VOLUME 94.9 fL (80.0-94.0); MEAN CORPUSCULAR HGB CONC 34.8 g/dL (33.0-37.0); MEAN PLATELET VOLUME 8.8 fL (7.2-11.7); MONO # 0.9 K/uL (0.0-0.8); MONO % 11.9 % (0.0-10.0); NEUT # 4.5 K/uL (1.8-7.0); NEUT % 59.4 % (50.0-75.0); RBC 4.84 Mil/uL (4.40-5.90); RED CELL DISTRIBUTION WIDTH 13.5 % (11.5-14.5); WHITE BLOOD COUNT 7.6 K/uL (4.8-10.8)
[2018-02-20 08:26] LABS: ALB/GLOB RATIO 1.4 (1.0-2.1); ALBUMIN 3.8 g/dL (3.5-5.0); ALT/SGPT 18 U/L (21-72); AST/SGOT 20 U/L (17-59); BLOOD UREA NITROGEN 14 mg/dL (9-20); CALCIUM 9.1 mg/dl (8.6-10.4); GFR NON-AFRICAN AMERICAN > 60
--- NOTE | 2018-02-20 09:20 | RAD ---
Date of service: 02/20/2018 PROCEDURE: Radiographs of the Right Shoulder HISTORY: right shoulder pain COMPARISON: No prior. FINDINGS: BONES: No acute fracture or destructive bony lesion identified. JOINTS: Advanced degenerative changes seen the acromioclavicular joint and are mild at the glenohumeral joint. No subluxation or dislocation appreciated. SOFT TISSUES: Normal. OTHER FINDINGS: None. IMPRESSION: No acute fracture dislocation right shoulder. Degenerative changes are prominent at the acromioclavicular joint and mild at the glenohumeral joint.
[2018-02-20] MEDS: Enoxaparin 40 mg Syringe SC SCH (11:18)
--- NOTE | 2018-02-20 18:20 | CP.PCM.PN ---
<Josemanuel Delgado - Last Filed: 02/20/18 18:20> Subjective - Date & Time of Evaluation Date of Evaluation: 02/20/18 Time of Evaluation: 18:15 - Subjective Subjective: Progress note. Attending: Dr. Lopez Pt seen and examined at bedside. No acute distress. No events overnight. Still feeling dizzy, orthostatics negative. Echo pending. Objective - Vital Signs/Intake and Output Vital Signs (last 24 hours): Temp Pulse Resp BP Pulse Ox 98.4 F 60 20 117/76 97 02/20/18 15:00 02/20/18 15:00 02/20/18 15:00 02/20/18 17:58 02/20/18 15:00 Intake and Output: 02/20/18 02/20/18 06:59 18:59 Intake Total 500 Output Total 500 Balance 0 - Medications Medications: Current Medications Acetaminophen (Tylenol 325mg Tab) 650 mg PO Q6 PRN PRN Reason: Pain, Mild (1-3) Last Admin: 02/19/18 08:51 Dose: 650 mg Aspirin (Aspirin Chewable) 81 mg PO DAILY ON LICENSE OF [facility] Last Admin: 02/20/18 11:17 Dose: 81 mg Cyanocobalamin (Vitamin B12 1000 Mcg Tab) 1,000 mcg PO DAILY ON LICENSE OF [facility] Last Admin: 02/20/18 11:19 Dose: 1,000 mcg Enoxaparin Sodium (Lovenox) 40 mg SC DAILY ON LICENSE OF [facility] Last Admin: 02/20/18 11:18 Dose: 40 mg Folic Acid (Folic Acid) 1 mg PO DAILY ON LICENSE OF [facility] Last Admin: 02/20/18 11:18 Dose: 1 mg Influenza Virus Vaccine (Fluzone Quad [id number]) 60 mcg IM .ONCE ONE Stop: 02/21/18 10:01 Losartan Potassium (Cozaar) 50 mg PO DAILY ON LICENSE OF [facility] Last Admin: 02/20/18 11:18 Dose: 50 mg Meclizine HCl (Antivert) 25 mg PO TID PRN PRN Reason: Dizziness Last Admin: 02/20/18 11:18 Dose: 25 mg Metoprolol Tartrate (Lopressor) 25 mg PO BID ON LICENSE OF [facility] Last Admin: 02/20/18 17:58 Dose: Not Given Thiamine HCl (Vitamin B1 Tab) 50 mg PO DAILY ON LICENSE OF [facility] Last Admin: 02/20/18 11:19 Dose: 50 mg - Labs Labs: 02/20/18 07:51 02/20/18 07:51 - Constitutional Appears: Non-toxic, No Acute Distress, Unkempt, Older Than Stated Age, Chronically Ill - Head Exam Head Exam: ATRAUMATIC, NORMAL INSPECTION, NORMOCEPHALIC - Eye Exam Eye Exam: EOMI - ENT Exam ENT Exam: Mucous Membranes Moist - Neck Exam Neck Exam: Full ROM, Normal Inspection - Respiratory Exam Respiratory Exam: absent: Respiratory Distress - Cardiovascular Exam Cardiovascular Exam: +S1, +S2 - GI/Abdominal Exam GI & Abdominal Exam: Soft, Normal Bowel Sounds. absent: Tenderness - Extremities Exam Extremities Exam: Full ROM, Normal Inspection - Back Exam Back Exam: NORMAL INSPECTION - Neurological Exam Neurological Exam: Alert, Awake, CN II-XII Intact - Psychiatric Exam Psychiatric exam: Flat Affect - Skin Skin Exam: Dry, Intact, Normal Color, Warm Assessment and Plan - Assessment and Plan (Free Text) Assessment: This is a 67 year old male with past medical hx of HTN, anemia, emphysema, CAD, PVD, and CVA (2008) presenting with dizziness and generalized weakness 1.Unsteady gait Patient has dizziness for years and followed by neurologist-recommending out pt follow up MRI brain without stroke/no mass seen by PT, recommending rehab. we will follow with SW in the morning patient is complaining fo dizziness d/w RN pt is unsteady 2..Dizziness no orthostatic hypotension Meclizine 25mg PO BID Brain MRI -no acute pathology PT/OT recommend rehab/unsteady Head CT (02/18): No intracranial hemorrhage. Moderate to severe non-specific white matter changes CXR (03/20): Mild bibasilar atelactasis ordering echo, pending 3. Hx of Alcohol abuse: Upon chart review, patient has multiple visits in the past for alcohol into xication Folate 1mg PO QD Vitamin B12 1000 mcg PO QD Thiamine 50mg PO QD Serum alcohol level: < 10 UDS: negative 4.Right shoulder pain shoulder x ray -needs mri of shoulder -possibly rotator cuff pathology 4.Hypertension: Losartan 50mg PO QD Metoprolol 25mg PO BID Continue to monitor BP 5.Hx of CAD: - ASA 81mg PO QD - Metoprolol 25mg PO BID discussed with Dr. Lopez <Lalito Lopez - Last Filed: 02/20/18 19:02> Objective - Vital Signs/Intake and Output Vital Signs (last 24 hours): Temp Pulse Resp BP Pulse Ox 98.4 F 60 20 117/76 97 02/20/18 15:00 02/20/18 15:00 02/20/18 15:00 02/20/18 17:58 02/20/18 15:00 Intake and Output: 02/20/18 02/20/18 06:59 18:59 Intake Total 500 Output Total 500 Balance 0 - Medications Medications: Current Medications Acetaminophen (Tylenol 325mg Tab) 650 mg PO Q6 PRN PRN Reason: Pain, Mild (1-3) Last Admin: 02/19/18 08:51 Dose: 650 mg Aspirin (Aspirin Chewable) 81 mg PO DAILY ON LICENSE OF [facility] Last Admin: 02/20/18 11:17 Dose: 81 mg Cyanocobalamin (Vitamin B12 1000 Mcg Tab) 1,000 mcg PO DAILY ON LICENSE OF [facility] Last Admin: 02/20/18 11:19 Dose: 1,000 mcg Enoxaparin Sodium (Lovenox) 40 mg SC DAILY ON LICENSE OF [facility] Last Admin: 02/20/18 11:18 Dose: 40 mg Folic Acid (Folic Acid) 1 mg PO DAILY ON LICENSE OF [facility] Last Admin: 02/20/18 11:18 Dose: 1 mg Influenza Virus Vaccine (Fluzone Quad [id number]) 60 mcg IM .ONCE ONE Stop: 02/21/18 10:01 Losartan Potassium (Cozaar) 50 mg PO DAILY ON LICENSE OF [facility] Last Admin: 02/20/18 11:18 Dose: 50 mg Meclizine HCl (Antivert) 25 mg PO TID PRN PRN Reason: Dizziness Last Admin: 02/20/18 11:18 Dose: 25 mg Metoprolol Tartrate (Lopressor) 25 mg PO BID ON LICENSE OF [facility] Last Admin: 02/20/18 17:58 Dose: Not Given Thiamine HCl (Vitamin B1 Tab) 50 mg PO DAILY ON LICENSE OF [facility] Last Admin: 02/20/18 11:19 Dose: 50 mg - Labs Labs: 02/20/18 07:51 02/20/18 07:51 Attending/Attestation - Attestation I have personally seen and examined this patient.: Yes I have fully participated in the care of the patient.: Yes I have reviewed all pertinent clinical information, including history, physical exam and plan: Yes Notes (Text): 02/20/18 18:58 Medical attending: Patient was seen and examined by me with the medical professionals. Reviewed the above note by the medical professionals At this moment he reports he still has sensation of dizziness. He has already had an MRI done and also orthostatic checks. Today an echo was ordered as well, I did not hear mumur on exam. It is possible this ongoing dizziness is secondary to alcohol history Lalito Lopez
[2018-02-21 07:42] LABS: BASO # 0.1 K/uL (0.0-0.2); BASO % 1.3 % (0.0-2.0); EOS # 0.2 K/uL (0.0-0.7); EOS % 3.9 % (0.0-4.0); HEMOGLOBIN 15.3 g/dL (12.0-18.0); LYMPH # 1.7 K/uL (1.0-4.3); LYMPH % 27.8 % (20.0-40.0); MEAN CELL VOLUME 95.1 fL (80.0-94.0); MEAN CORPUSCULAR HEMOGLOBIN 32.4 pg (27.0-31.0); MEAN CORPUSCULAR HGB CONC 34.1 g/dL (33.0-37.0); MEAN PLATELET VOLUME 8.8 fL (7.2-11.7); MONO # 0.7 K/uL (0.0-0.8); MONO % 11.5 % (0.0-10.0); NEUT # 3.4 K/uL (1.8-7.0); NEUT % 55.5 % (50.0-75.0); RBC 4.71 Mil/uL (4.40-5.90); RED CELL DISTRIBUTION WIDTH 13.9 % (11.5-14.5); WHITE BLOOD COUNT 6.1 K/uL (4.8-10.8)
[2018-02-21] MEDS: Enoxaparin 40 mg Syringe SC SCH (09:22)
[2018-02-21 09:30] LABS: ALB/GLOB RATIO 1.3 (1.0-2.1); ALBUMIN 3.7 g/dL (3.5-5.0); ALT/SGPT 22 U/L (21-72); AST/SGOT 26 U/L (17-59); BLOOD UREA NITROGEN 17 mg/dL (9-20); CALCIUM 9.2 mg/dl (8.6-10.4); GFR NON-AFRICAN AMERICAN > 60
[2018-02-21] MEDS ORDERED: Influenza Vaccine 60 MCG/0.5 ML SYR (3 yr & up) IM ONE (10:00)
[2018-02-21] MEDS ORDERED: Pneumococcal 23-Valent Vaccine IM ONE (10:00)
--- NOTE | 2018-02-21 12:15 | CARD ---
APPROVED REPORT Date of service: 02/18/2018 EKG Measurement Heart [id number] <Conclusion> Normal sinus rhythm Right bundle branch block Abnormal ECG
--- NOTE | 2018-02-21 14:45 | CP.PCM.PN ---
<Xavier Zavala - Last Filed: 02/21/18 14:59> Subjective - Date & Time of Evaluation Date of Evaluation: 02/21/18 Time of Evaluation: 10:00 - Subjective Subjective: Xavier Zavala PGY1 Progress Note for Dr. Osei Pt was examined at bedside this morning. He reports continuation of his dizziness. He says he feels as though he is spinning and the room is spinning. He reports the dizziness upon laying down and standing up. He reports unsteady gait and blurry vision for the past couple of months as well. He denied nausea or vomiting, chest pain or shortness of breath. Objective - Vital Signs/Intake and Output Vital Signs (last 24 hours): Temp Pulse Resp BP Pulse Ox 98.5 F 79 20 118/73 96 02/21/18 08:00 02/21/18 08:00 02/21/18 08:00 02/21/18 09:24 02/21/18 08:18 Intake and Output: 02/21/18 02/21/18 06:59 18:59 Intake Total 500 Balance 500 - Medications Medications: Current Medications Acetaminophen (Tylenol 325mg Tab) 650 mg PO Q6 PRN PRN Reason: Pain, Mild (1-3) Last Admin: 02/19/18 08:51 Dose: 650 mg Aspirin (Aspirin Chewable) 81 mg PO DAILY [facility] Last Admin: 02/21/18 09:23 Dose: 81 mg Cyanocobalamin (Vitamin B12 1000 Mcg Tab) 1,000 mcg PO DAILY [facility] Last Admin: 02/21/18 09:23 Dose: 1,000 mcg Enoxaparin Sodium (Lovenox) 40 mg SC DAILY [facility] Last Admin: 02/21/18 09:22 Dose: 40 mg Folic Acid (Folic Acid) 1 mg PO DAILY [facility] Last Admin: 02/21/18 09:23 Dose: 1 mg Losartan Potassium (Cozaar) 50 mg PO DAILY [facility] Last Admin: 02/21/18 09:23 Dose: 50 mg Meclizine HCl (Antivert) 25 mg PO TID PRN PRN Reason: Dizziness Last Admin: 02/20/18 11:18 Dose: 25 mg Metoprolol Tartrate (Lopressor) 25 mg PO BID [facility] Last Admin: 02/21/18 09:24 Dose: 25 mg Thiamine HCl (Vitamin B1 Tab) 50 mg PO DAILY [facility] Last Admin: 02/21/18 09:23 Dose: 50 mg - Labs Labs: 02/21/18 07:29 02/21/18 07:29 - Constitutional Appears: Well, No Acute Distress - Head Exam Head Exam: ATRAUMATIC, NORMOCEPHALIC - Eye Exam Eye Exam: Normal appearance, PERRL. absent: EOMI - ENT Exam ENT Exam: Mucous Membranes Moist - Neck Exam Neck Exam: Normal Inspection - Respiratory Exam Respiratory Exam: Clear to Ausculation Bilateral, NORMAL BREATHING PATTERN. absent: Rales, Rhonchi, Wheezes, Respiratory Distress - Cardiovascular Exam Cardiovascular Exam: REGULAR RHYTHM, +S1, +S2. absent: Gallop, Rubs, Murmur - GI/Abdominal Exam GI & Abdominal Exam: Soft, Normal Bowel Sounds. absent: Distended, Firm, Tenderness - Extremities Exam Extremities Exam: absent: Pedal Edema - Neurological Exam Neurological Exam: Alert, Awake, Motor Sensory Deficit Additional comments: AAO x2, to person and place CN dysfunction, unable to track finger motion with eyes negative alethea-hallpike maneuver - Psychiatric Exam Psychiatric exam: Normal Affect, Normal Mood - Skin Skin Exam: Normal Color Assessment and Plan - Assessment and Plan (Free Text) Assessment: 67 year old male with past medical hx of HTN, anemia, emphysema, CAD, PVD, and CVA (2008) presenting with dizziness and generalized weakness Plan: Dizziness - Patient has dizziness for years and followed by neurologist -recommending out pt follow up - MRI brain (02/19): chronic microangiopathy, cerebral atrophy. no acute stroke or pathology - Head CT (02/18): No intracranial hemorrhage. Moderate to severe non-specific white matter changes - negative alethea-hallpike - meclizine 25 PO BID - pending ECHO reading - PT: HOME Hx of Alcohol abuse: - multiple past visits for alcohol intoxication - Folate 1mg PO QD - Vitamin B12 1000 mcg PO QD - Thiamine 50mg PO QD - Serum alcohol level: < 10 - UDS: negative Right shoulder pain - Shoulder Xray: degenerative changes, no fracture - possibly rotator cuff injury - tylenol 650mg PO q6h PRN Hypertension - Losartan 50mg PO QD - Metoprolol 25mg PO BID Hx of CAD - ASA 81mg PO QD - Metoprolol 25mg PO BID PPX GI: not indicated at this time DVT: lovenox 40 sc daily Dispo: insurance requiring 3 overnights as inpatient admission for acceptance to rehab. Pt formerly admitted as observation, changed to inpatient 02/21. Pt seen and case discussed with Dr. Osei <Kimberly Osei - Last Filed: 02/23/18 16:42> Objective - Vital Signs/Intake and Output Vital Signs (last 24 hours): Temp Pulse Resp BP Pulse Ox 97.3 F L 67 20 132/79 96 02/23/18 15:56 02/23/18 15:56 02/23/18 15:56 02/23/18 15:56 02/23/18 15:56 Intake and Output: 02/23/18 02/23/18 06:59 18:59 Intake Total 300 240 Balance 300 240 - Medications Medications: Current Medications Acetaminophen (Tylenol 325mg Tab) 650 mg PO Q6 PRN PRN Reason: Pain, Mild (1-3) Last Admin: 02/19/18 08:51 Dose: 650 mg Aspirin (Aspirin Chewable) 81 mg PO DAILY [facility] Last Admin: 02/23/18 09:23 Dose: 81 mg Cyanocobalamin (Vitamin B12 1000 Mcg Tab) 1,000 mcg PO DAILY [facility] Last Admin: 02/23/18 09:23 Dose: 1,000 mcg Enoxaparin Sodium (Lovenox) 40 mg SC DAILY [facility] Last Admin: 02/23/18 09:23 Dose: 40 mg Folic Acid (Folic Acid) 1 mg PO DAILY [facility] Last Admin: 02/23/18 09:24 Dose: 1 mg Ketorolac Tromethamine (Toradol) 10 mg PO Q6 PRN PRN Reason: Pain, moderate (4-7) Losartan Potassium (Cozaar) 50 mg PO DAILY [facility] Last Admin: 02/23/18 09:23 Dose: 50 mg Meclizine HCl (Antivert) 25 mg PO TID PRN PRN Reason: Dizziness Last Admin: 02/20/18 11:18 Dose: 25 mg Metoprolol Tartrate (Lopressor) 25 mg PO BID [facility] Last Admin: 02/23/18 09:23 Dose: 25 mg Thiamine HCl (Vitamin B1 Tab) 50 mg PO DAILY [facility] Last Admin: 02/23/18 09:23 Dose: 50 mg - Labs Labs: 02/23/18 06:57 02/23/18 06:57 Attending/Attestation - Attestation I have personally seen and examined this patient.: Yes I have fully participated in the care of the patient.: Yes I have reviewed all pertinent clinical information, including history, physical exam and plan: Yes Notes (Text): patient is comfortable.Has chronic dizziness/work up done in the past,MRI no acute path,alcohol abuse Pending rehab I agree with the resident's documentation Assessment and the plan discussed
--- NOTE | 2018-02-21 18:17 | CARD ---
APPROVED REPORT Date of service: 02/21/2018 EXAM: Two-dimensional and M-mode echocardiogram with Doppler and color Doppler. Other Information Quality : GoodRhythm : INDICATION Abnormal EKG/Arrhythmia CVA/TIA Dizziness and Vertigo Cardiac Disease: CAD COPD ALCOHOL ABUSE, ANEMIA RISK FACTORS Hypertension 2D DIMENSIONS IVSd0.8 (0.7-1.1cm)LVDd3.2 (3.9-5.9cm) PWd0.9 (0.7-1.1cm)LA Jvhvuv78 (18-58mL) LVDs1.8 (2.5-4.0cm)FS (%) 42.5 % LVEF (%)74.8 (>50%)LVEF (Vences's)79.22 % IVC0.00 cm M-Mode DIMENSIONS Left Atrium (MM)3.72 (2.5-4.0cm)IVSd0.88 (0.7-1.1cm) Aortic Root2.82 (2.2-3.7cm)LVDd4.23 (4.0-5.6cm) Aortic Cusp Exc.1.80 (1.5-2.0cm)PWd0.78 (0.7-1.1cm) FS (%) 50 %LVDs2.12 (2.0-3.8cm) LVEF (%)82 (>50%) Mitral Valve MV E Hpmochfz33.7cm/sMV A Fvvvwehl28.9cm/sE/A ratio0.9 TDI Lateral E' Peak V9.32cm/sMedial E' Peak V6.67cm/sE/Lateral E'6.8 E/Medial E'9.6 Tricuspid Valve TR Peak Ccruibey677hh/sTR Peak [id number] LEFT VENTRICLE The left ventricle is normal size. There is normal left ventricular wall thickness. The left ventricular function is normal. The left ventricular ejection fraction is within the normal range. There is normal LV segmental wall motion. Transmitral Doppler flow pattern is abnormal. RIGHT VENTRICLE The right ventricle is normal size. ATRIA The left atrium size is normal. The right atrium size is normal. AORTIC VALVE The aortic valve is normal in structure. MITRAL VALVE The mitral valve is normal in structure. TRICUSPID VALVE There is trace to mild tricuspid regurgitation. <Conclusion> Normal LV systolic function. Diastolic dysfunction. Normal chambe rsize. Trace to mild TR.
[2018-02-22 07:39] LABS: BASO # 0.1 K/uL (0.0-0.2); BASO % 0.6 % (0.0-2.0); EOS # 0.2 K/uL (0.0-0.7); EOS % 2.4 % (0.0-4.0); HEMOGLOBIN 14.8 g/dL (12.0-18.0); LYMPH # 1.3 K/uL (1.0-4.3); LYMPH % 12.5 % (20.0-40.0); MEAN CELL VOLUME 95.2 fL (80.0-94.0); MEAN CORPUSCULAR HEMOGLOBIN 32.6 pg (27.0-31.0); MEAN CORPUSCULAR HGB CONC 34.2 g/dL (33.0-37.0); MEAN PLATELET VOLUME 8.7 fL (7.2-11.7); MONO # 0.9 K/uL (0.0-0.8); MONO % 8.6 % (0.0-10.0); NEUT # 7.7 K/uL (1.8-7.0); NEUT % 75.9 % (50.0-75.0); NRBC % 0.1 % (0.0-2.0); RBC 4.54 Mil/uL (4.40-5.90); RED CELL DISTRIBUTION WIDTH 13.8 % (11.5-14.5)
[2018-02-22 07:40] LABS: WHITE BLOOD COUNT 10.1 K/uL (4.8-10.8)
[2018-02-22 07:45] LABS: ALB/GLOB RATIO 1.3 (1.0-2.1); ALBUMIN 3.5 g/dL (3.5-5.0); ALT/SGPT 23 U/L (21-72); AST/SGOT 27 U/L (17-59); BLOOD UREA NITROGEN 17 mg/dL (9-20); CALCIUM 8.7 mg/dl (8.6-10.4); GFR NON-AFRICAN AMERICAN > 60
--- NOTE | 2018-02-22 09:16 | CP.PCM.PN ---
<Xavier Zavala - Last Filed: 02/22/18 15:29> Subjective - Date & Time of Evaluation Date of Evaluation: 02/22/18 Time of Evaluation: 09:12 - Subjective Subjective: Xavier Zavala PGY1 Progress Note for Dr. Osei Pt was examined at bedside this morning. He is confused about where he is, and says it looks like he is in a hospital. He reports improvement of his dizziness. He denies any chest pain, shortness of breath, nausea, vomiting, abdominal pain. Objective - Vital Signs/Intake and Output Vital Signs (last 24 hours): Temp Pulse Resp BP Pulse Ox 97.8 F 75 20 134/73 98 02/22/18 08:19 02/22/18 08:19 02/22/18 08:19 02/22/18 08:19 02/22/18 08:19 Intake and Output: 02/22/18 02/22/18 06:59 18:59 Intake Total 300 Balance 300 - Medications Medications: Current Medications Acetaminophen (Tylenol 325mg Tab) 650 mg PO Q6 PRN PRN Reason: Pain, Mild (1-3) Last Admin: 02/19/18 08:51 Dose: 650 mg Aspirin (Aspirin Chewable) 81 mg PO DAILY [facility] Last Admin: 02/21/18 09:23 Dose: 81 mg Cyanocobalamin (Vitamin B12 1000 Mcg Tab) 1,000 mcg PO DAILY [facility] Last Admin: 02/21/18 09:23 Dose: 1,000 mcg Enoxaparin Sodium (Lovenox) 40 mg SC DAILY [facility] Last Admin: 02/21/18 09:22 Dose: 40 mg Folic Acid (Folic Acid) 1 mg PO DAILY [facility] Last Admin: 02/21/18 09:23 Dose: 1 mg Losartan Potassium (Cozaar) 50 mg PO DAILY [facility] Last Admin: 02/21/18 09:23 Dose: 50 mg Meclizine HCl (Antivert) 25 mg PO TID PRN PRN Reason: Dizziness Last Admin: 02/20/18 11:18 Dose: 25 mg Metoprolol Tartrate (Lopressor) 25 mg PO BID [facility] Last Admin: 02/21/18 18:15 Dose: 25 mg Thiamine HCl (Vitamin B1 Tab) 50 mg PO DAILY [facility] Last Admin: 02/21/18 09:23 Dose: 50 mg - Labs Labs: 02/22/18 07:10 02/22/18 07:10 - Additional Findings Additional findings: - Constitutional Appears: Well, No Acute Distress - Head Exam Head Exam: ATRAUMATIC, NORMOCEPHALIC - Eye Exam Eye Exam: Normal appearance, PERRL. absent: EOMI - ENT Exam ENT Exam: Mucous Membranes Moist - Neck Exam Neck Exam: Normal Inspection - Respiratory Exam Respiratory Exam: Clear to Ausculation Bilateral, NORMAL BREATHING PATTERN. absent: Rales, Rhonchi, Wheezes, Respiratory Distress - Cardiovascular Exam Cardiovascular Exam: REGULAR RHYTHM, +S1, +S2. absent: Gallop, Rubs, Murmur - GI/Abdominal Exam GI & Abdominal Exam: Soft, Normal Bowel Sounds. absent: Distended, Firm, Tenderness - Extremities Exam Extremities Exam: absent: Pedal Edema - Neurological Exam Neurological Exam: Alert, Awake, Motor Sensory Deficit Additional comments: AAO x1, to person CN dysfunction, unable to track finger motion with eyes - Psychiatric Exam Psychiatric exam: Normal Affect, Normal Mood - Skin Skin Exam: Normal Color Assessment and Plan - Assessment and Plan (Free Text) Assessment: 67 year old male with past medical hx of HTN, anemia, emphysema, CAD, PVD, and CVA (2008) presenting with dizziness and generalized weakness Plan: Dizziness - Patient has dizziness for years and followed by neurologist -recommending out pt follow up - MRI brain (02/19): chronic microangiopathy, cerebral atrophy. no acute stroke or pathology - Head CT (02/18): No intracranial hemorrhage. Moderate to severe non-specific white matter changes - negative alethea-hallpike - meclizine 25 PO BID - ECHO: normal LV systolic function, diastolic dysfunction, trace TR. - PT: HOME Hx of Alcohol abuse: - multiple past visits for alcohol intoxication - Folate 1mg PO QD - Vitamin B12 1000 mcg PO QD - Thiamine 50mg PO QD - Serum alcohol level: < 10 - UDS: negative Right shoulder pain - Shoulder Xray: degenerative changes, no fracture - possibly rotator cuff injury - tylenol 650mg PO q6h PRN Hypertension - Losartan 50mg PO QD - Metoprolol 25mg PO BID Hx of CAD - ASA 81mg PO QD - Metoprolol 25mg PO BID PPX GI: not indicated at this time DVT: lovenox 40 sc daily Dispo: insurance requiring 3 overnights as inpatient admission for acceptance to rehab. Plan for d/c on 02/24. Pt seen and case discussed with Dr. Osei <Kimberly Osei - Last Filed: 02/25/18 16:00> Objective - Vital Signs/Intake and Output Vital Signs (last 24 hours): Temp Pulse Resp BP Pulse Ox 98.3 F 65 20 107/70 98 02/24/18 16:42 02/24/18 16:42 02/24/18 16:42 02/24/18 16:42 02/24/18 16:42 - Labs Labs: 02/24/18 06:44 02/24/18 06:44 Attending/Attestation - Attestation I have personally seen and examined this patient.: Yes I have fully participated in the care of the patient.: Yes I have reviewed all pertinent clinical information, including history, physical exam and plan: Yes Notes (Text): seen and examined and discussed with the resident Pending discharge
[2018-02-22] MEDS: Enoxaparin 40 mg Syringe SC SCH (10:27)
[2018-02-23 07:02] LABS: BASO % 0.4 % (0.0-2.0); EOS # 0.3 K/uL (0.0-0.7); EOS % 4.9 % (0.0-4.0); HEMOGLOBIN 15.2 g/dL (12.0-18.0); LYMPH # 1.3 K/uL (1.0-4.3); LYMPH % 22.7 % (20.0-40.0); MEAN CELL VOLUME 94.4 fL (80.0-94.0); MEAN CORPUSCULAR HEMOGLOBIN 31.8 pg (27.0-31.0); MEAN CORPUSCULAR HGB CONC 33.7 g/dL (33.0-37.0); MEAN PLATELET VOLUME 8.8 fL (7.2-11.7); MONO # 0.7 K/uL (0.0-0.8); MONO % 12.9 % (0.0-10.0); NEUT # 3.3 K/uL (1.8-7.0); NEUT % 59.1 % (50.0-75.0); RBC 4.77 Mil/uL (4.40-5.90); RED CELL DISTRIBUTION WIDTH 13.8 % (11.5-14.5); WHITE BLOOD COUNT 5.5 K/uL (4.8-10.8)
--- NOTE | 2018-02-23 07:44 | CP.PCM.PN ---
Subjective - Date & Time of Evaluation Date of Evaluation: 02/23/18 Time of Evaluation: 07:42 - Subjective Subjective: Xavier Zavala PGY1 Progress Note for Dr. Osei Pt was examined at bedside this morning. He reports continuation of his dizzin ess, when he gets up or lays down. He also continues to complain of R shoulder pain that he describes in the posterior region. Pt denies nausea, vomiting, chest pain, shortness of breath, abdominal pain. Objective - Vital Signs/Intake and Output Vital Signs (last 24 hours): Temp Pulse Resp BP Pulse Ox 98.7 F 71 20 125/71 98 02/23/18 00:19 02/23/18 00:19 02/23/18 00:19 02/23/18 00:19 02/23/18 00:19 Intake and Output: 02/23/18 02/23/18 06:59 18:59 Intake Total 300 Balance 300 - Medications Medications: Current Medications Acetaminophen (Tylenol 325mg Tab) 650 mg PO Q6 PRN PRN Reason: Pain, Mild (1-3) Last Admin: 02/19/18 08:51 Dose: 650 mg Aspirin (Aspirin Chewable) 81 mg PO DAILY [facility] Last Admin: 02/22/18 10:27 Dose: 81 mg Cyanocobalamin (Vitamin B12 1000 Mcg Tab) 1,000 mcg PO DAILY [facility] Last Admin: 02/22/18 10:37 Dose: 1,000 mcg Enoxaparin Sodium (Lovenox) 40 mg SC DAILY [facility] Last Admin: 02/22/18 10:27 Dose: 40 mg Folic Acid (Folic Acid) 1 mg PO DAILY [facility] Last Admin: 02/22/18 10:27 Dose: 1 mg Losartan Potassium (Cozaar) 50 mg PO DAILY [facility] Last Admin: 02/22/18 10:27 Dose: 50 mg Meclizine HCl (Antivert) 25 mg PO TID PRN PRN Reason: Dizziness Last Admin: 02/20/18 11:18 Dose: 25 mg Metoprolol Tartrate (Lopressor) 25 mg PO BID [facility] Last Admin: 02/22/18 18:16 Dose: 25 mg Thiamine HCl (Vitamin B1 Tab) 50 mg PO DAILY [facility] Last Admin: 02/22/18 10:27 Dose: 50 mg - Labs Labs: 02/23/18 06:57 02/22/18 07:10 - Additional Findings Additional findings: - Constitutional Appears: Well, No Acute Distress - Head Exam Head Exam: ATRAUMATIC, NORMOCEPHALIC - Eye Exam Eye Exam: Normal appearance, PERRL. absent: EOMI - ENT Exam ENT Exam: Mucous Membranes Moist - Neck Exam Neck Exam: Normal Inspection - Respiratory Exam Respiratory Exam: Clear to Ausculation Bilateral, NORMAL BREATHING PATTERN. absent: Rales, Rhonchi, Wheezes, Respiratory Distress - Cardiovascular Exam Cardiovascular Exam: REGULAR RHYTHM, +S1, +S2. absent: Gallop, Rubs, Murmur - GI/Abdominal Exam GI & Abdominal Exam: Soft, Normal Bowel Sounds. absent: Distended, Firm, Tenderness - Extremities Exam Extremities Exam: absent: Pedal Edema - Neurological Exam Neurological Exam: Alert, Awake, Motor Sensory Deficit Additional comments: AAO x1, to person CN dysfunction, unable to track finger motion with eyes - Psychiatric Exam Psychiatric exam: Normal Affect, Normal Mood - Skin Skin Exam: Normal Color Assessment and Plan - Assessment and Plan (Free Text) Assessment: 67 year old male with past medical hx of HTN, anemia, emphysema, CAD, PVD, and CVA (2008) presenting with dizziness and generalized weakness Plan: Dizziness - Patient has dizziness for years and followed by neurologist -recommending out pt follow up - MRI brain (02/19): chronic microangiopathy, cerebral atrophy. no acute stroke or pathology - Head CT (02/18): No intracranial hemorrhage. Moderate to severe non-specific white matter changes - negative alethea-hallpike - meclizine 25 PO BID - ECHO: normal LV systolic function, diastolic dysfunction, trace TR. - PT: HOME Hx of Alcohol abuse: - multiple past visits for alcohol intoxication - Folate 1mg PO QD - Vitamin B12 1000 mcg PO QD - Thiamine 50mg PO QD - Serum alcohol level: < 10 - UDS: negative Right shoulder pain - Shoulder Xray: degenerative changes, no fracture - possibly rotator cuff injury - tylenol 650mg PO q6h PRN Hypertension - Losartan 50mg PO QD - Metoprolol 25mg PO BID Hx of CAD - ASA 81mg PO QD - Metoprolol 25mg PO BID PPX GI: not indicated at this time DVT: lovenox 40 sc daily Dispo: insurance requiring 3 overnights as inpatient admission for acceptance to rehab. Plan for d/c on 02/24. Pt seen and case discussed with Dr. Osei
[2018-02-23 08:05] LABS: ALB/GLOB RATIO 1.4 (1.0-2.1); ALBUMIN 3.7 g/dL (3.5-5.0); ALT/SGPT 26 U/L (21-72); AST/SGOT 28 U/L (17-59); BLOOD UREA NITROGEN 21 mg/dL (9-20); CALCIUM 9.1 mg/dl (8.6-10.4); GFR NON-AFRICAN AMERICAN > 60
[2018-02-23] MEDS: Enoxaparin 40 mg Syringe SC SCH (09:23)
[2018-02-24 00:24] VITALS: O2SAT 98
[2018-02-24 07:17] LABS: ALB/GLOB RATIO 1.4 (1.0-2.1); ALBUMIN 3.7 g/dL (3.5-5.0); ALT/SGPT 23 U/L (21-72); AST/SGOT 18 U/L (17-59); BLOOD UREA NITROGEN 20 mg/dL (9-20); CALCIUM 8.9 mg/dl (8.6-10.4); GFR NON-AFRICAN AMERICAN > 60
[2018-02-24 07:27] LABS: BASO # 0.1 K/uL (0.0-0.2); BASO % 1.1 % (0.0-2.0); EOS # 0.3 K/uL (0.0-0.7); EOS % 5.6 % (0.0-4.0); HEMOGLOBIN 15.4 g/dL (12.0-18.0); LYMPH # 1.4 K/uL (1.0-4.3); LYMPH % 24.2 % (20.0-40.0); MEAN CELL VOLUME 95.1 fL (80.0-94.0); MEAN CORPUSCULAR HEMOGLOBIN 33.1 pg (27.0-31.0); MEAN CORPUSCULAR HGB CONC 34.8 g/dL (33.0-37.0); MEAN PLATELET VOLUME 8.7 fL (7.2-11.7); MONO # 0.7 K/uL (0.0-0.8); MONO % 11.8 % (0.0-10.0); NEUT # 3.4 K/uL (1.8-7.0); NEUT % 57.3 % (50.0-75.0); NRBC % 0.2 % (0.0-2.0); RBC 4.64 Mil/uL (4.40-5.90); RED CELL DISTRIBUTION WIDTH 13.6 % (11.5-14.5)
[2018-02-24] MEDS: Enoxaparin 40 mg Syringe SC SCH (11:00)
--- NOTE | 2018-02-24 16:13 | CP.PCM.DIS ---
Provider - Provider Date of Admission: 02/21/18 14:39 Attending physician: Kimebrly Osei MD Time Spent in preparation of Discharge (in minutes): 70 Hospital Course - Lab Results Lab Results: Most Recent Lab Values WBC 6.0 K/uL (4.8-10.8) 02/24/18 06:44 RBC 4.64 Mil/uL (4.40-5.90) 02/24/18 06:44 Hgb 15.4 g/dL (12.0-18.0) 02/24/18 06:44 Hct 44.1 % (35.0-51.0) 02/24/18 06:44 MCV 95.1 fL (80.0-94.0) H 02/24/18 06:44 MCH 33.1 pg (27.0-31.0) H 02/24/18 06:44 MCHC 34.8 g/dL (33.0-37.0) 02/24/18 06:44 RDW 13.6 % (11.5-14.5) 02/24/18 06:44 Plt Count 330 K/uL (130-400) 02/24/18 06:44 MPV 8.7 fL (7.2-11.7) 02/24/18 06:44 Neut % (Auto) 57.3 % (50.0-75.0) 02/24/18 06:44 Lymph % (Auto) 24.2 % (20.0-40.0) 02/24/18 06:44 Hughes % (Auto) 11.8 % (0.0-10.0) H 02/24/18 06:44 Eos % (Auto) 5.6 % (0.0-4.0) H 02/24/18 06:44 Baso % (Auto) 1.1 % (0.0-2.0) 02/24/18 06:44 Neut # (Auto) 3.4 K/uL (1.8-7.0) 02/24/18 06:44 Lymph # (Auto) 1.4 K/uL (1.0-4.3) 02/24/18 06:44 Hughes # (Auto) 0.7 K/uL (0.0-0.8) 02/24/18 06:44 Eos # (Auto) 0.3 K/uL (0.0-0.7) 02/24/18 06:44 Baso # (Auto) 0.1 K/uL (0.0-0.2) 02/24/18 06:44 Neutrophils % (Manual) 82 % (50-75) H 02/18/18 13:49 Band Neutrophils % 3 % (0-2) H 02/18/18 13:49 Lymphocytes % (Manual) 7 % (20-40) L 02/18/18 13:49 Monocytes % (Manual) 8 % (0-10) 02/18/18 13:49 Platelet Estimate Normal (NORMAL) 02/18/18 13:49 RBC Morphology Normal 02/18/18 13:49 Sodium 136 mmol/L (132-148) 02/24/18 06:44 Potassium 4.7 mmol/L (3.6-5.2) 02/24/18 06:44 Chloride 104 mmol/L (98-107) 02/24/18 06:44 Carbon Dioxide 27 mmol/L (22-30) 02/24/18 06:44 Anion Gap 11 (10-20) 02/24/18 06:44 BUN 20 mg/dL (9-20) 02/24/18 06:44 Creatinine 1.0 mg/dL (0.8-1.5) 02/24/18 06:44 Est GFR ( Amer) > 60 02/24/18 06:44 Est GFR (Non-Af Amer) > 60 02/24/18 06:44 POC Glucose (mg/dL) 112 mg/dL (65-110) H 02/18/18 13:46 Random Glucose 112 mg/dL (75-110) H 02/24/18 06:44 Calcium 8.9 mg/dl (8.6-10.4) 02/24/18 06:44 Phosphorus 3.8 mg/dL (2.5-4.5) 02/24/18 06:44 Magnesium 2.1 mg/dL (1.6-2.3) 02/24/18 06:44 Total Bilirubin 0.4 mg/dL (0.2-1.3) 02/24/18 06:44 AST 18 U/L (17-59) 02/24/18 06:44 ALT 23 U/L (21-72) 02/24/18 06:44 Alkaline Phosphatase 56 U/L (38-126) 02/24/18 06:44 Ammonia < 9 umol/L (9-33) L 02/18/18 13:49 Troponin I < 0.0120 ng/mL (0.00-0.120) 02/18/18 13:49 NT-Pro-B Natriuret Pep 740 pg/mL (0-900) 02/18/18 13:49 Total Protein 6.2 g/dL (6.3-8.3) L 02/24/18 06:44 Albumin 3.7 g/dL (3.5-5.0) 02/24/18 06:44 Globulin 2.5 gm/dL (2.2-3.9) 02/24/18 06:44 Albumin/Globulin Ratio 1.4 (1.0-2.1) 02/24/18 06:44 TSH 3rd Generation 3.13 mIU/L (0.46-4.68) 02/18/18 13:49 Urine Color Yellow (YELLOW) 02/18/18 15:10 Urine Clarity Clear (Clear) 02/18/18 15:10 Urine pH 7.0 (5.0-8.0) 02/18/18 15:10 Ur Specific [place] 1.006 (1.003-1.030) 02/18/18 15:10 Urine Protein Negative mg/dL (NEGATIVE) 02/18/18 15:10 Urine Glucose (UA) Normal mg/dL (Normal) 02/18/18 15:10 Urine Ketones Negative mg/dL (NEGATIVE) 02/18/18 15:10 Urine Blood 1+ (NEGATIVE) H 02/18/18 15:10 Urine Nitrate Negative (NEGATIVE) 02/18/18 15:10 Urine Bilirubin Negative (NEGATIVE) 02/18/18 15:10 Urine Urobilinogen Normal mg/dL (0.2-1.0) 02/18/18 15:10 Ur Leukocyte Esterase Neg Jennie/uL (Negative) 02/18/18 15:10 Urine WBC (Auto) 1 /hpf (0-5) 02/18/18 15:10 Urine RBC (Auto) 9 /hpf (0-3) H 02/18/18 15:10 Hyaline Casts 3-5 /lpf (0-2) H 02/18/18 15:10 Urine Opiates Screen Negative (NEGATIVE) 02/18/18 15:10 Urine Methadone Screen Negative (NEGATIVE) 02/18/18 15:10 Ur Barbiturates Screen Negative (NEGATIVE) 02/18/18 15:10 Ur Phencyclidine Scrn Negative (NEGATIVE) 02/18/18 15:10 Ur Amphetamines Screen Negative (NEGATIVE) 02/18/18 15:10 U Benzodiazepines Scrn Negative (NEGATIVE) 02/18/18 15:10 U Oth Cocaine Metabols Negative (NEGATIVE) 02/18/18 15:10 U Cannabinoids Screen Negative (NEGATIVE) 02/18/18 15:10 Alcohol, Quantitative < 10 mg/dl (0-10) 02/18/18 13:49 - Hospital Course Hospital Course: Upon Admission: Patient s a 67 year old male with PMHx of HTN, anemia, emphysema, CAD, PVD, and CVA (2008) presenting with dizziness and generalized weakness. He was brought in by ambulance due to feeling dizzy and weak while crossing the street today. He states that he was unable to make it to the other side of the street and that is when someone called an ambulance. He describes the dizziness as if his head is spinning. He denies any visual or hearing loss. He also complains of feeling unsteady and weak when he walks and uses a cane to walk. He states that he has had this problem for a long time and saw a neurologist who said that he is deficient in vitamin B12. Patient denies taking Vitamin B12 supplements. Moreover, he reports to residual left eye visual abnormalities due to prior stroke in 2008. Patient denies fevers, chills, nausea, vomiting, tinnitus, difficulties in swallowing or speaking, headaches, chest pain, SOB, palpitations, abdominal pain, leg swelling, and paresthesias. In the ED, CXR showed mild bibasilar atelectases. CT head showed chronic nonspecific white matter changes. Pt was afebrile and vitals were stable. Hospital Course: Pt received meclizine for dizziness and was restarted on home BP meds of losartan and metoprolol. Pt reported progressive improvement of dizziness throughout hospital course but continued to be AAOx2, not oriented to year. He was started on thiamine, folate, and vitamin b12 MRI brain showed chronic microangiopathy and cerebral atrophy. ECHO showed normal systolic function, diastolic dysfunction, normal chamber size, and trace to mild TR. He complained of R shoulder pain. Xray R shoulder showed no fracture, but ch ronic degenerative changes related to age. Pt was deemed stable for discharge to [facility] and was accepted to Discharge Exam - Head Exam Head Exam: ATRAUMATIC, NORMOCEPHALIC - Additional Findings Additional findings: - Constitutional Appears: Well, No Acute Distress - Head Exam Head Exam: ATRAUMATIC, NORMOCEPHALIC - Eye Exam Eye Exam: Normal appearance, PERRL. absent: EOMI - ENT Exam ENT Exam: Mucous Membranes Moist - Neck Exam Neck Exam: Normal Inspection - Respiratory Exam Respiratory Exam: Clear to Ausculation Bilateral, NORMAL BREATHING PATTERN. absent: Rales, Rhonchi, Wheezes, Respiratory Distress - Cardiovascular Exam Cardiovascular Exam: REGULAR RHYTHM, +S1, +S2. absent: Gallop, Rubs, Murmur - GI/Abdominal Exam GI & Abdominal Exam: Soft, Normal Bowel Sounds. absent: Distended, Firm, Tenderness - Extremities Exam Extremities Exam: absent: Pedal Edema - Neurological Exam Neurological Exam: Alert, Awake, Motor Sensory Deficit Additional comments: AAO x1, to person CN dysfunction, unable to track finger motion with eyes - Psychiatric Exam Psychiatric exam: Normal Affect, Normal Mood - Skin Skin Exam: Normal Color Discharge Plan - Follow Up Plan Condition: FAIR Disposition: REHAB FACILITY/REHAB UNIT Instructions: Weakness (ED) Additional Instructions: Please take your medications as prescribed: Aspirin 81mg PO daily Vitamin B12 1,000mcg PO daily Folic Acid 1mg PO daily Losartan 50mg PO daily Metoprolol Tartrate 25mg PO twice a day Thiamine 50mg PO daily Please return to the emergency department if symptoms worsen. Por favor tome magdalena medicamentos segn lo prescrito: Aspirina 81mg PO diario Vitamina B12 1,000mcg PO diario cido Flico 1mg PO diario Losartan 50mg PO diario Metoprolol Tartrato 25 mg PO dos veces al da [place] 50mg PO diario Por favor regrese al departamento de emergencias si los sntomas empeoran.
[2018-02-24 16:43] VITALS: BP 107/70; PULSE 65; TEMP 98.3
== END 2018-02-24 16:57 | DRG 556 ==
LOC: C.ER 13:17 → C.3T 16:30 → OBSVTOIN 02-21 14:39
PROVIDERS: ADMIT Internal Medicine; ATTEND Internal Medicine
DX: M62.81 Muscle weakness (generalized) (principal); R42 Dizziness and giddiness; R26.81 Unsteadiness on feet; E53.8 Deficiency of other specified B group vitamins; I10 Essential (primary) hypertension; I25.10 Atherosclerotic heart disease of native coronary artery without angina pectoris; I73.9 Peripheral vascular disease, unspecified; J43.9 Emphysema, unspecified; D64.9 Anemia, unspecified; F10.10 Alcohol abuse, uncomplicated; Y90.0 Blood alcohol level of less than 20 mg/100 ml; F17.210 Nicotine dependence, cigarettes, uncomplicated; M19.011 Primary osteoarthritis, right shoulder; M25.511 Pain in right shoulder; F41.9 Anxiety disorder, unspecified; E78.00 Pure hypercholesterolemia, unspecified; H53.8 Other visual disturbances; H47.092 Other disorders of optic nerve, not elsewhere classified, left eye; Z86.73 Personal history of transient ischemic attack (TIA), and cerebral infarction without residual deficits